=== PATIENT | female | born 1970 | race Caucasian/White ===

== ENCOUNTER 2016-07-19 09:07 | Emergency (ER) | payer OTHER ==
[~2016-07-19] VITALS: Ht 162.6 cm; Wt 95.5 kg
[~2016-07-19 09:07] MED LIST: ALBU8.5H4 IH; CALCIUM 500+VI1 EACH PO; CITA10TA14 PO; FISH PO; MULT-892 PO; OMEP20TA86 PO
[2016-07-19 09:16] VITALS: BP 142/80; PULSE 127; RESP 16; O2SAT 97
[2016-07-19] MEDS ORDERED: Ondansetron 2 mg/mL 2 mL Inj IVPUSH PRN (09:25)
[2016-07-19] MEDS ORDERED: 0.9% Sodium Chloride 1,000 ML IV ONE ×2 (09:25→10:50)
--- NOTE | 2016-07-19 09:33 | ED.REPORT ---
HPI-NVD Date of Service Jul 19, 2016 ED Provider: Jana Sarmiento MD The patient is a 46 year old female w/ a hx of migraines, GERD, rls, and bariatric surgery who presents to the ED due to vomiting onset 8 hrs [place]. At 0100 this morning, the pt woke up with a headache, lightheadedness, vomiting, confusion, chills, nausea, and weakness. Her headache is 5/10 and increasing in severity. She tried to drink some water, but immediately threw it up. The patient has vomited more then 10 times this morning alone and had 3 very large, solid, bowel movements. She reports that she had no other symptoms yesterday, except that she was extremely fatigued. Her spouse states that this headache is not presenting like her typical migraines. The patient was awake for 24 hrs straight Monday morning for a family event. She denies cough, sob, difficulty breathing, abdominal pain, bloating, and cramping. Dr. Josr Mitchell is her PCP and Dr. Shivam Sykes performed her bariatric surgery. Nursing Notes Stated Complaint: VOMITING Chief Complaint: General Complaint Nursing Notes Reviewed: Yes Allergies: Coded Allergies: latex (Verified Allergy, Severe, SKIN BLISTERING REQ. DEBRIDEMENT (FROM TAPE), 07/19/16) codeine (Verified Allergy, Mild, Nausea, 07/19/16) hydrocodone bitartrate (Verified Adverse Reaction, Mild, IT DOESN'T WORK, 07/19/16) Scheduled Albuterol-Expunged Drug, Do Not Renew! (Albuterol-Expunged Drug, Do Not Renew!) 8.5 Gm Hfa.aer.ad 2 PUFFS IH PRN RESCUE INHALER Mukesh Carb/Vitamin D3-Expunged, Do Not Renew! (CALCIUM 500/VIT D 400-Expunged, Do Not Renew!) 1 Each Tablet 1 EACH PO DAILY Citalopram-Expunged Drug, Do Not Renew! (Citalopram-Expunged Drug, Do Not Renew! ) 10 Mg Tablet 10 MG PO HS Fish Oil-Expunged Drug, Do Not Renew! (Fish Oil-Expunged Drug, Do Not Renew!) Cap 750 MG PO DAILY INSTRUCTED TO STOP Multivitamin (Daily Value) 1 Each Tablet 1 EACH PO DAILY Omeprazole-Expunged Drug, Do Not Renew! (Omeprazole-Expunged Drug, Do Not Renew! ) 20 Mg Tablet.dr 20 MG PO HS Scheduled PRN Ondansetron ODT (Ondansetron ODT) 8 Mg Tab.rapdis 8 MG PO Q6H PRN PRN For Nausea /Vomiting General Time Seen by MD: 09:20 Chief Complaint Vomiting Hx Obtained From: Patient Arrived By: Walk-in Onset Occurred: 5 - 8 hours ago Symptom Duration: Since onset Vomiting: Vomiting > 10 episodes Associated with: Reports: Headache Recent Healthcare: No recent doctor visit, No recent hospitalization Similar Sx Previous: No Past Medical History Past Medical History Obesity Reports: Asthma, GERD Reports: Depression Past Surgical History Gastric sleeve on 12/22/[address] Shivam Howard at [facility]. S/P ureteral stent S/P knee scopes x2 ORIF ankle Reports: Cholecystectomy Social History Other Social History: Local resident Ambulatory Status Independent Review of Systems Constitutional: Reports: Chills, Fatigue, Weakness - generalized GI: Reports: Nausea, Vomiting, Denies: Abdominal pain, Constipation, Diarrhea Skin: Reports Diaphoresis, Denies Rash Neurologic: Reports: Confusion, Lightheaded, Denies: Change LOC Complete sys rev & neg: except as marked. Respiratory: Denies: Non-productive cough, Shortness of breath Physical Exam Initial Vital Signs Vital Signs (First) Date Time Temp Pulse Resp B/P Pulse Ox O2 Delivery O2 Flow Rate FiO2 07/19/16 09:16 39.2 127 16 142/80 97 Room Air Initial VS: Reviewed, Vital signs abnormal General/Constitutional: Awake, Alert, No acute distress, Cooperative Abdomen: No guarding, No rebound Bowel Sounds / Distention: Positive: Bowel sounds hypoactive generalized mild discomfort Heart Rate / Rhythm: Positive: Tachycardia Back: Atraumatic, Inspection NL, No CVA tenderness Skin: No rash, Warm, Dry Neurologic: Oriented X3, Speech NL, No motor deficits Head / Eyes: Normocephalic, PERRL, EOMI Upper Extremity / MS: Atraumatic, Inspection NL, No deformity Lower Extremity / Pelvis / MS: Atraumatic, Inspection NL, No deformity, No edema Interpretation & Diagnostics Lab Results Interpretation Result Diagram: 07/19/16 1425 07/19/16 0922 Test 07/19/16 09:22 07/19/16 10:51 6/6/17 14:25 Sodium Level 136mEq/L (134-144) Potassium Level 3.7mEq/L (3.5-5.2) Chloride Level 102mEq/L (97-108) Carbon Dioxide Level 22mmol/L (18-29) Blood Urea Nitrogen 17mg/dL (6-24) Creatinine 0.57mg/dL (0.57-1.00) Estimat Glomerular Filtration Rate 165mL/min (>59) Glucose Level 133mg/dL (60-99) Lactic Acid Level 1.4mmol/L (0.4-2.0) Calcium Level 8.7mg/dL (8.5-10.1) Magnesium Level 1.5mg/dL (1.6-2.6) Total Bilirubin 0.5mg/dL (0.0-1.2) Aspartate Amino Transf (AST/SGOT) 20U/L (0-50) Alanine Aminotransferase (ALT/SGPT) 20U/L (0-32) Alkaline Phosphatase 53U/L (25-150) Total Protein 6.3g/dL (6.4-8.4) Albumin 3.9g/dL (3.4-5.0) Lipase 247U/L (13-60) Urine Color Straw (YELLOW) Urine Appearance Hazy (CLEAR,HAZY) Urine pH 6.0 (5.0-8.0) Urine Specific [place] 1.020 (1.003-1.035) Urine Protein Negativemg/dL (NEG,TRACE) Urine Glucose (UA) Negativemg/dL (NEGATIVE) Urine Ketones Negativemg/dL (NEGATIVE) Urine Occult Blood Negative (NEGATIVE) Urine Nitrite Negative (NEGATIVE) Urine Bilirubin Negative (NEGATIVE) Urine Urobilinogen Normalmg/dL (NORMAL) Urine Leukocyte Esterase Negative (NEGATIVE) Urine RBC 0-2/hpf (0-2) Urine WBC 0-5/hpf (0-5) Urine Epithelial Cells Occasional/hpf (NONE-MOD) Urine Crystals None seen (NONE SEEN) Urine Bacteria Moderate/hpf (NONE-FEW) Urine Hyaline Casts None/lpf (NONE) Urine Granular Casts None seen (NONE SEEN) Urine Waxy Casts None seen (NONE SEEN) Urine Red Blood Cell Casts None seen (NONE SEEN) Urine White Blood Cell Casts None seen (NONE SEEN) Urine Mucus None seen (None Seen) Urine Trichomonas None seen (NONE SEEN) Urine Yeast None (NONE SEEN) Urinalysis Comment None Urine Culture Reflexed Indicated Hold Urine Received (Received) White Blood Count 9.0th/mm3 (3.8-10.1) Red Blood Count 4.27mil/mm3 (3.90-5.20) Hemoglobin 13.0g/dL (12.0-15.6) Hematocrit 38.7% (35.0-46.0) Mean Corpuscular Volume 90.6fL (81-100) Mean Corpuscular Hemoglobin 30.4pg (27.0-35.0) Mean Corpuscular Hemoglobin Concent 33.6% (32.0-37.0) Red Cell Distribution Width 13.7% (12.3-15.4) Platelet Count 145bil/L (150-400) Neutrophils (%) (Auto) 88.0% (40-74) Lymphocytes (%) (Auto) 4.7% (14-46) Monocytes (%) (Auto) 6.9% (4-12) Eosinophils (%) (Auto) 0.2% (0-5) Basophils (%) (Auto) 0.1% (0-3) X-Ray Abdominal Interpretation IMPRESSION: 1. Prominent left upper quadrant small bowel loops may represent focal ileus. If there is clinical concern for developing bowel obstruction, please consider contrast enhanced CT of the abdomen and pelvis for further evaluation. 2. Negative chest. Dictated by: Robb Shaffer M.D. on 07/19/2016 at 9:31 Approved by: Robb Shaffer M.D. on 07/19/2016 at 9:35 Study: 2 view Interpretation / Wet Read by: Interpret - Radiologist Re-Eval/Medical Decision Med Decision/Clinical Course Patient presented with fever and tachycardia, was concern for sepsis. The patient's main physical complaint was vomiting and an increased number of stools. She also complained of a headache. The patient has a normal neurologic exam and is alert and oriented. As far as her tachycardia is likely related to dehydration and fever, improved with hydration. No other source of infection was found in the patient's labs improved while here. The patient no longer meets SIRS criteria and she was discharged home. A partial list of differential diagnoses considered were sepsis, dehydration, pneumonia, gastroenteritis, pyelonephritis, meningitis, and bacteremia. Re-Evaluation/Progress : Time of Eval: 10:44 Patient Status: Condition improved Re-Evaluation/Progress Note: Pt rechecked. Informed pt of x-ray results, elevated lipase, and plan for CT. Her nausea is improved. Pt understands and agrees with plan. Counseled Regarding: Diagnosis, Lab results, Need for follow-up, When/why to return to ED Discharge & Departure Impression: Primary Impression: Fever Fever type: unspecified Qualified Code: R50.9 - Fever, unspecified Additional Impression: Vomiting Vomiting type: unspecified Vomiting Intractability: unspecified Nausea presence: with nausea Qualified Code: R11.2 - Nausea with vomiting, unspecified Disposition: Home Discharge Condition All VS Reviewed: Yes Condition: Stable Patient Instructions: Gastroenteritis (ED) Additional Instructions: Thank you for entrusting us with your care today. You may be developing gastroenteritis. The source of your fever is unclear. You need to be reevaluated if your fever continues for more then a couple days. Follow up with your primary care physician in the following week. Return to the Emergency Department if you experience any new or worsening symptoms including difficulty breathing, shortness of breath, or increase in fever. I hope you feel better soon! Referrals: Josr Mitchell MD (PCP) Scribe Attestation Portion of this note were transcribed by Mónica Smith. I, Dr. Sarmiento , personally performed the history, physical exam, and medical decision-making: I reviewed and confirmed the accuracy for the information in the transcribed note. Signed by: daniella Kline, 07/19/16 1200 copies to: Josr Mitchell MD, Jena M MD Jul 19, 2016 09:33 Mónica Smith Jul 19, 2016 09:40
[2016-07-19 09:34] LABS: BASOPHILS % (AUTO) 0.1 % (0-3); EOSINOPHILS % (AUTO) 0.4 % (0-5); MONOCYTES % (AUTO) 4.6 % (4-12); Mean Corpuscular Volume 90.8 fL (81-100); NEUTROPHILS % (AUTO) 90.9 % (40-74); Platelet Count 168 bil/L (150-400)
[2016-07-19 09:52] LABS: Magnesium 1.5 mg/dL (1.6-2.6)
[2016-07-19 10:05] VITALS: BP 143/41; PULSE 104; RESP 20; O2SAT 100
[2016-07-19] MEDS ORDERED: Magnesium Sulf 2 Gm/50mL Water 2 GM in IV Premix 1 EACH IV ONE (10:25)
--- NOTE | 2016-07-19 10:37 | DRSVH ---
PROCEDURE: X-RAY ACUTE ABDOMINAL SERIES ([id number]) INDICATIONS: vomiting TECHNIQUE: One view chest and two views of the abdomen were acquired. COMPARISON: [facility], CT, CT ABD PELVIS W CON, 01/10/2015, 11:03. FINDINGS: Surgical changes and devices: Clips within the right upper quadrant are suggestive of a prior cholecy stectomy. Other metallic densities overlying the left abdomen are felt to be related to overlying cl othing. Chest: Lungs are clear. Heart size is normal. No pleural effusions. No pneumoperitoneum. Abdomen: A few borderline prominent air-filled small bowel loops within the left upper quadrant are i dentified, measuring up to approximately 3 cm in diameter. Maybe a few corresponding air-fluid level s. Otherwise, air and stool are seen throughout the colon. No suspicious calcifications. Visualize d solid organ contours appear normal. Bones: No suspicious bony lesions. Degenerative changes of the shoulders and spine are present. Th ere also degenerative changes of the sacroiliac joints. There also are mild to moderate degenerative changes of the bilateral hips. IMPRESSION: 1. Prominent left upper quadrant small bowel loops may represent focal ileus. If there is clinical concern for developing bowel obstruction, please consider contrast enhanced CT of the abdomen and pel vis for further evaluation. 2. Negative chest. Dictated by: Robb Shaffer M.D. on 07/19/2016 at 9:31 Approved by: Robb Shaffer M.D. on 07/19/2016 at 9:35
[2016-07-19 11:07] VITALS: BP 136/63; PULSE 107; RESP 18; O2SAT 96
[2016-07-19 11:24] LABS: APPEARANCE,URINE HAZY (CLEAR,HAZY); COLOR,URINE STRAW (YELLOW); OCCULT BLOOD,URINE NEGATIVE (NEGATIVE); UROBILINOGEN,URINE NORMAL (NORMAL)
--- NOTE | 2016-07-19 12:09 | DRSVH ---
PROCEDURE: CT ABDOMEN AND PELVIS WITH CONTRAST ([id number]) INDICATIONS: vomiting/fever increased lipase TECHNIQUE: After the administration of intravenous contrast, 5 mm thick sections acquired from the diaphragm to the symphysis. 5 mm coronal and sagittal reformats were acquired. For radiation dose reduction, the following was used: automated exposure control, adjustment of mA and/or kV according to patient kristy he. COMPARISON: [facility], CT, KUB - CT (PNL), 03/31/2013, 3:44. [facility], CT , CT ABD PELVIS W CON, 01/10/2015, 11:03. FINDINGS: Image quality: Excellent. ABDOMEN: Lung bases: Lung bases are clear. Heart size is normal. Solid organs: Liver and spleen are normal in size and enhancement. Gallbladder is surgically absent . Biliary system is non dilated. Pancreas enhances normally. No adrenal nodules. Kidneys demonstr ate normal size and enhancement, without hydronephrosis. Peritoneum and bowel: There are surgical sutures along the stomach. There is fluid within the lumen of duodenum. Fluid filled small bowel loops demonstrate normal wall thickness and caliber. The appen sheng is normal. No free fluid or air. Nodes and vessels: No retroperitoneal or mesenteric adenopathy by size criteria. Aorta and inferior vena cava are normal in size. Miscellaneous: No ventral hernias. PELVIS: Genitourinary: Bladder wall thickness is normal. There is a 4.7 cm cyst in the right adnexa. Miscellaneous: No inguinal hernias or adenopathy. Bones: No suspicious bony lesions. No vertebral body compression fractures. Degenerative disease i n lumbar spine. IMPRESSION: 1. Fluid-filled small intestine which is normal in caliber and wall thickness. This finding is nonspe cific and may be secondary to gastroenteritis. Recommend clinical correlation. 2. Normal CT appearance the pancreas, which does not exclude early pancreatitis. 3. Normal appendix. 4. A 4.7 cm right adnexal cyst. Dictated by: Tonya Moore M.D. on 07/19/2016 at 12:03 Approved by: Tonya Moore M.D. on 07/19/2016 at 12:08
[2016-07-19] MEDS ORDERED: Lactated Ringer's 1,000 ML IV ONE (13:00)
[2016-07-19 14:33] LABS: BASOPHILS % (AUTO) 0.1 % (0-3); EOSINOPHILS % (AUTO) 0.2 % (0-5); MONOCYTES % (AUTO) 6.9 % (4-12); Mean Corpuscular Hemoglobin 30.4 pg (27.0-35.0); Mean Corpuscular Volume 90.6 fL (81-100); Platelet Count 145 bil/L (150-400)
[2016-07-19 14:46] VITALS: BP 131/63; PULSE 93; RESP 22; O2SAT 99
[2016-07-19] MEDS ORDERED: MetoCLOpramide 5 mg/mL 2 mL Inj IVPUSH ONE (14:50)
[2016-07-19] MEDS ORDERED: ONDA8TAB10 PO (15:20)
[2016-07-19 15:38] VITALS: BP 121/61; PULSE 84; RESP 10; O2SAT 98
== END 2016-07-19 15:36 | disposition home or self-care (01) ==
LOC: SED 09:07
DX: R11.2 Nausea with vomiting, unspecified (principal); R50.9 Fever, unspecified; R53.83 Other fatigue; R42 Dizziness and giddiness; R53.1 Weakness; R41.0 Disorientation, unspecified; J45.909 Unspecified asthma, uncomplicated; K21.9 Gastro-esophageal reflux disease without esophagitis; G43.909 Migraine, unspecified, not intractable, without status migrainosus; Z88.5 Allergy status to narcotic agent; Z91.040 Latex allergy status
CPT/HCPCS: 36415; 74022; 74177; 80053; 81000; 83605; 83690; 83735; 85025; 87040; 87086; 87088; 96361; 96365; 96375; 99285; J2405; J2765; J7030; J7120; Q9967